=== PATIENT | male | born 1955 ===

== ENCOUNTER 2018-11-21 13:11 | Emergency (ER) | payer OTHER ==
[~2018-11-21] VITALS: Ht 172.7 cm; Wt 72.6 kg
[~2018-11-21 13:11] MED LIST: ASPI325 PO; ATEN100 PO; IBUP600 PO; LISI20 PO
[2018-11-21 13:47] LABS: BASOPHILS PERCENT AUTO 1 % (0-2); EOSINOPHILS ABSOLUTE AUTO 0.21 K/mm3 (0.00-0.68); EOSINOPHILS PERCENT AUTO 3 % (0-6); Hematocrit 39.5 % (37.0-53.0); Hemoglobin 14.3 g/dL (13.5-17.5); IMMATURE GRAN ABSOLUTE AUTO 0.04 K/mm3 (0.00-0.10); IMMATURE GRAN PERCENT AUTO 1 % (0-1); LYMPHOCYTES PERCENT AUTO 23 % (21-46); MONOCYTES ABSOLUTE AUTO 0.74 K/mm3 (0.16-1.47); MONOCYTES PERCENT AUTO 9 % (4-13); Mean Corpuscular HGB 35.1 pg (26.0-34.0); Mean Corpuscular HGB Conc 36.2 g/dL (31.5-36.5); Mean Corpuscular Volume 97 fL (80-100); Mean Platelet Volume 8.4 fL (9.1-12.4); NEUTROPHILS ABSOLUTE AUTO 5.39 K/mm3 (1.96-9.15); NEUTROPHILS PERCENT AUTO 64 % (41-73); Platelet Count 235 K/mm3 (150-400); RDW Coefficient Variation 10.7 % (11.7-14.2); RDW Standard Deviation 38.5 fL (35.1-46.3); Red Blood Cell Count 4.07 M/mm3 (4.30-5.90); White Blood Cell Count 8.38 K/mm3 (4.00-11.30)
[2018-11-21] MEDS ORDERED: AMLO5 PO (13:53)
[2018-11-21 14:16] LABS: Alanine Aminotransfer (ALT/SGP 24 U/L (12-78); Albumin, Blood 3.9 g/dL (3.4-5.0); Albumin/Globulin Ratio 1.1 (0.8-1.8); Alk Phos 75 U/L (50-136); Anion Gap 6 mmol/L (6-16); Aspartate Aminotrans (AST/SGOT 20 U/L (12-37); Bilirubin, Total 0.9 mg/dL (0.1-1.0); Blood Urea Nitrogen 5 mg/dL (8-24); Bun/Creatinine Ratio 7.7 (12.0-20.0); CO2, Blood 28 mmol/L (21-32); Calcium, Blood 8.5 mg/dL (8.5-10.1); Chloride, Blood 94 mmol/L (98-108); Creatinine, Blood 0.65 mg/dL (0.60-1.20); Globulin, Blood 3.5 g/dL (2.2-4.0); Glomerular Filtration Rate >60 (60-); Glucose, Blood 97 mg/dL (70-99); Potassium, Blood 4.5 mmol/L (3.5-5.5); Sodium, Blood 128 mmol/L (136-145); Total Protein, Blood 7.4 g/dL (6.4-8.2); Troponin I <0.015 ng/mL (0.000-0.040)
[2018-11-21] MEDS ORDERED: IBUP400 PO (14:55)
== END 2018-11-21 15:27 | disposition home or self-care (01) ==
LOC: ER 13:11
PROVIDERS: Emergency Medicine
DX: J44.9 Chronic obstructive pulmonary disease, unspecified (principal); R07.9 Chest pain, unspecified; F17.200 Nicotine dependence, unspecified, uncomplicated; I10 Essential (primary) hypertension; Z79.899 Other long term (current) drug therapy
CPT/HCPCS: 36415; 71046; 80053; 83880; 84484; 85025; 93005; 93010; 99285-25

== ENCOUNTER → 2019-09-19 | Outpatient (CLI) | payer OTHER ==
[~2019-09-19] MED LIST changes: +AMLO5 PO; +IBUP400 PO
[2019-09-19 15:13] LABS: Stool Occult Bld Immuno 1 Negative (NEGATIVE)
== END ==
LOC: LAB SHORT 08:30 → LAB 08:30
PROVIDERS: Nurse Practitioner Family
DX: Z12.11 Encounter for screening for malignant neoplasm of colon (principal)
CPT/HCPCS: G0328

== ENCOUNTER → 2022-05-19 | Outpatient (CLI) | payer MEDICARE, OTHER ==
[2022-05-19 15:34] LABS: BASOPHILS ABSOLUTE AUTO 0.13 K/mm3 (0.00-0.23); BASOPHILS PERCENT AUTO 2 % (0-2); EOSINOPHILS ABSOLUTE AUTO 0.13 K/mm3 (0.00-0.68); EOSINOPHILS PERCENT AUTO 2 % (0-6); Hematocrit 38.2 % (37.0-53.0); Hemoglobin 13.9 g/dL (13.5-17.5); IMMATURE GRAN ABSOLUTE AUTO 0.04 K/mm3 (0.00-0.10); IMMATURE GRAN PERCENT AUTO 1 % (0-1); LYMPHOCYTES ABSOLUTE AUTO 1.44 K/mm3 (0.84-5.20); LYMPHOCYTES PERCENT AUTO 20 % (21-46); MONOCYTES ABSOLUTE AUTO 0.64 K/mm3 (0.16-1.47); MONOCYTES PERCENT AUTO 9 % (4-13); Mean Corpuscular HGB 36.5 pg (26.0-34.0); Mean Corpuscular HGB Conc 36.4 g/dL (31.5-36.5); Mean Corpuscular Volume 100 fL (80-100); Mean Platelet Volume 8.7 fL (9.1-12.4); NEUTROPHILS ABSOLUTE AUTO 4.92 K/mm3 (1.96-9.15); NEUTROPHILS PERCENT AUTO 67 % (41-73); Platelet Count 208 K/mm3 (150-400); RDW Standard Deviation 44.2 fL (35.1-46.3); Red Blood Cell Count 3.81 M/mm3 (4.30-5.90)
[2022-05-19 15:47] LABS: Albumin, Blood 3.7 g/dL (3.4-5.0); Bilirubin, Total 0.4 mg/dL (0.1-1.0); Bun/Creatinine Ratio 5.8 (12.0-20.0); Creatinine, Blood 0.86 mg/dL (0.60-1.20); Globulin, Blood 3.7 g/dL (2.2-4.0); Potassium, Blood 4.4 mmol/L (3.5-5.5); Total Protein, Blood 7.4 g/dL (6.4-8.2)
== END | disposition home or self-care (01) ==
LOC: LAB SHORT 15:28 → LAB 15:28
PROVIDERS: Physician Assistant
DX: R10.9 Unspecified abdominal pain (principal)
CPT/HCPCS: 80053; 85025

== ENCOUNTER 2025-06-26 18:25 | Inpatient (IN) | payer OTHER ==
[~2025-06-26] VITALS: Ht 175.3 cm; Wt 70.1 kg
[~2025-06-26 18:25] MED LIST changes: +AMLO10 PO; -AMLO5 PO; +PANT20 PO; +Percocet 5-3251 EACH PO
[2025-06-26] MEDS ORDERED: NS 2,000 ML IV ONE (18:35)
[2025-06-26] MEDS ORDERED: NS 1,000 ML IV SCH ×3 (18:40→20:50)
[2025-06-26 18:44] LABS: Calcium, Ionized (POC) 1.17 mmol/L (1.10-1.46); Chloride (POC) 102 mmol/L (98-108); Creatinine (POC) 1.8 mg/dL (0.8-1.3); Glucose (ISTAT POC) 153 mg/dL (70-99); Hematocrit (POC) 35.0 % (41.0-53.0); Hemoglobin (POC) 11.9 g/dL (13.5-17.5); Potassium (POC) 4.8 mmol/L (3.5-5.5); Sodium (POC) 134 mmol/L (135-148); Total CO2 (POC) 17 mmol/L (21-32)
[2025-06-26 19:01] LABS: BASOPHILS ABSOLUTE AUTO 0.05 K/mm3 (0.00-0.23); BASOPHILS PERCENT AUTO 1 % (0-2); EOSINOPHILS ABSOLUTE AUTO 0.01 K/mm3 (0.00-0.68); EOSINOPHILS PERCENT AUTO 0 % (0-6); Hematocrit 32.5 % (37.0-53.0); Hemoglobin 11.4 g/dL (13.5-17.5); IMMATURE GRAN ABSOLUTE AUTO 0.10 K/mm3 (0.00-0.10); IMMATURE GRAN PERCENT AUTO 1 % (0-1); LYMPHOCYTES ABSOLUTE AUTO 1.20 K/mm3 (0.84-5.20); LYMPHOCYTES PERCENT AUTO 11 % (21-46); MONOCYTES ABSOLUTE AUTO 0.76 K/mm3 (0.16-1.47); MONOCYTES PERCENT AUTO 7 % (4-13); Mean Corpuscular HGB Conc 35.1 g/dL (31.5-36.5); Mean Corpuscular Volume 94 fL (80-100); NEUTROPHILS ABSOLUTE AUTO 8.44 K/mm3 (1.96-9.15); NEUTROPHILS PERCENT AUTO 80 % (41-73); NRBC ABSOLUTE 0.00 K/mm3 (0.00-0.02); NRBC Auto 0.0 /100 WBC (0.0-0.2); Platelet Count 383 K/mm3 (150-400); RDW Coefficient Variation 13.1 % (11.7-14.2); RDW Standard Deviation 44.9 fL (35.1-46.3)
[2025-06-26 19:12] LABS: Alanine Aminotransfer (ALT/SGP 25.0 U/L (12-78); Albumin, Blood 2.2 g/dL (3.4-5.0); Albumin/Globulin Ratio 0.5 (0.8-1.8); Anion Gap 10.0 mmol/L (3-11); Aspartate Aminotrans (AST/SGOT 25.0 U/L (12-37); Bilirubin, Total 0.4 mg/dL (0.1-1.0); Blood Urea Nitrogen 38.0 mg/dL (8-24); CO2, Blood 18.0 mmol/L (21-32); Calcium, Blood 8.6 mg/dL (8.5-10.1); Chloride, Blood 105.0 mmol/L (98-108); Creatinine, Blood 1.51 mg/dL (0.60-1.20); Globulin, Blood 4.5 g/dL (2.2-4.0); Glucose, Blood 155.0 mg/dL (70-99); Magnesium, Blood 1.5 mg/dL (1.6-2.4); Phosphorus, Blood 2.2 mg/dL (2.5-4.9); Potassium, Blood 4.6 mmol/L (3.5-5.5); Sodium, Blood 128.0 mmol/L (136-145); Total Protein, Blood 6.7 g/dL (6.4-8.2)
[2025-06-26] MEDS ORDERED: Piperacillin/Tazobactam Sod 3.375 GM in NS 100 ML IV ONE (19:15)
[2025-06-26 19:34] LABS: Influenza A, PCR NEGATIVE (NEGATIVE); Influenza B, PCR NEGATIVE (NEGATIVE); Resp Syncytial Virus, PCR NEGATIVE (NEGATIVE); SARS-Cov-2 (COVID-19) PCR, MMC NEGATIVE (NEGATIVE)
[2025-06-26] MEDS ORDERED: FentaNYL Citrate 50 MCG/ML 2 ML Injection IV ONE (19:55)
[2025-06-26] MEDS ORDERED: Ondansetron HCl 2 MG / ML 2ML Vial IV PRN (20:50)
[2025-06-26] MEDS ORDERED: FentaNYL Citrate 50 MCG/ML 2 ML Injection IV PRN (20:55)
[2025-06-26] MEDS ORDERED: HydrALAZINE HCl 20 MG / ML 1ML Vial IV PRN ×2 (20:55→23:05)
[2025-06-26] MEDS ORDERED: Magnesium Sulf 2 GM/Water 50ML 50 ML IV STA (20:57)
[2025-06-26] MEDS ORDERED: Sodium Phosphate 20 MM in NS 500 ML IV STA (21:00)
[2025-06-26] MEDS ORDERED: FentaNYL Citrate 50 MCG/ML 2 ML Injection ONE (21:39)
[2025-06-26] MEDS ORDERED: Phenylephrine HCl 100 MCG/ML-NS 10MLSYR (1MG/10ML) ONE (21:40)
[2025-06-26] MEDS ORDERED: Rocuronium Bromide 10 MG/ML 5ML Injection IV ONE (21:40)
[2025-06-26] MEDS ORDERED: Dexamethasone Sod Phos 10 MG/ML 1ML VIAL ONE (21:48)
[2025-06-26] MEDS ORDERED: Bupivacaine 0.5% HCl 5 MG/ML 30MLVIAL ONE (22:35)
[2025-06-26] MEDS ORDERED: Bupivacaine HCl 0.25% 30 ML Injection ONE (22:35)
[2025-06-26] MEDS ORDERED: Sugammadex Sodium 200 MG/2ML SDV (100 MG/ML) ONE (22:39)
[2025-06-26] MEDS ORDERED: Ondansetron HCl 2 MG / ML 2ML Vial ONE (22:39)
[2025-06-26 23:15] VITALS: BP 95/60
--- NOTE | 2025-06-26 23:15 | NUR ---
ASSESSMENT/ ASSUMED CARE/ S/P OR PT ARRIVED TO ICU VIA BED FROM OR. SLEEPING BUT OPENS EYES TO VERBAL STIMULI. DENIES PAIN AT THIS TIME. LUNGS CLEAR BUT DECREASED IN THE BASES. PT ON 6 LITERS O2 VIA NRB. SPO2 100%. CHANGED O2 TO 2 LITERS VIA NC. NONPRODUCTIVE COUGH NOTED. INSTRUCTED PT TO HOLD PILLOW TO ABD WHEN COUGHING. HEART RATE REGULAR IN THE 70'S. BP HYPOTENSIVE BUT MAP GREATER THAN 65. NO EDEMA. BT ABSENT. ABD FIRM. NG TO LEFT NARE ON LIS WITH BROWN LIQUID IN TUBING. ABD WITH MIDLINE GINETTE DRSG INTACT. IV 18G TO LEFT AC, SITE CLEAR. NA PHOS STARTED. FLUSHED WITHOUT DIFFICULTY. IV 18G TO RIGHT AC, SITE CLEAR. NS AT 125 ML/HR STARTED. FLUSHED WITHOUT DIFFICULTY. DOAN CATH PATENT DRAINING YELLOW URINE. SCD'S ON. PT GAVE VERBAL CONSENT TO CALL AND UPDATE SON. UNABLE TO REACH SON, PHONE STATES DISCONNECTED. GLASS EYE TO RIGHT NOTED. PT SLEEPY.
[2025-06-26 23:30] VITALS: BP 94/52
[2025-06-26 23:45] VITALS: BP 94/65
[2025-06-27] VITALS (40 sets, daily range): BP systolic 87–119; BP diastolic 49–98
--- NOTE | 2025-06-27 00:36 | NUR ---
PAIN PT AWAKE C/O ABD PAIN "BURNING" 05/15 MED WITH FENTANYL 50 MCQ
[2025-06-27] MEDS ORDERED: Piperacillin/Tazobactam Sod 3.375 GM in NS 100 ML IV SCH (02:00)
[2025-06-27] MEDS ORDERED: Metoclopramide HCl 5MG / ML 2ML Vial IV PRN (03:30)
[2025-06-27 03:57] LABS: BASOPHILS ABSOLUTE AUTO 0.03 K/mm3 (0.00-0.23); BASOPHILS PERCENT AUTO 0 % (0-2); EOSINOPHILS ABSOLUTE AUTO 0.00 K/mm3 (0.00-0.68); EOSINOPHILS PERCENT AUTO 0 % (0-6); Hematocrit 31.3 % (37.0-53.0); Hemoglobin 10.7 g/dL (13.5-17.5); IMMATURE GRAN ABSOLUTE AUTO 0.11 K/mm3 (0.00-0.10); IMMATURE GRAN PERCENT AUTO 1 % (0-1); LYMPHOCYTES ABSOLUTE AUTO 0.68 K/mm3 (0.84-5.20); LYMPHOCYTES PERCENT AUTO 6 % (21-46); MONOCYTES ABSOLUTE AUTO 0.19 K/mm3 (0.16-1.47); MONOCYTES PERCENT AUTO 2 % (4-13); Mean Corpuscular HGB Conc 34.2 g/dL (31.5-36.5); Mean Corpuscular Volume 96 fL (80-100); NEUTROPHILS ABSOLUTE AUTO 10.50 K/mm3 (1.96-9.15); NEUTROPHILS PERCENT AUTO 91 % (41-73); NRBC ABSOLUTE 0.00 K/mm3 (0.00-0.02); NRBC Auto 0.0 /100 WBC (0.0-0.2); Platelet Count 295 K/mm3 (150-400); RDW Coefficient Variation 13.2 % (11.7-14.2); RDW Standard Deviation 46.8 fL (35.1-46.3)
[2025-06-27 04:17] LABS: Magnesium, Blood 2.0 mg/dL (1.6-2.4)
[2025-06-27 04:23] LABS: Anion Gap 12.0 mmol/L (3-11); Blood Urea Nitrogen 28.0 mg/dL (8-24); CO2, Blood 19.0 mmol/L (21-32); Calcium, Blood 7.4 mg/dL (8.5-10.1); Chloride, Blood 111.0 mmol/L (98-108); Creatinine, Blood 1.07 mg/dL (0.60-1.20); Glucose, Blood 131.0 mg/dL (70-99); Phosphorus, Blood 3.9 mg/dL (2.5-4.9); Potassium, Blood 4.3 mmol/L (3.5-5.5); Sodium, Blood 138.0 mmol/L (136-145)
--- NOTE | 2025-06-27 06:08 | NUR ---
SHIFT SUMMARY PT ADMITTED TO ICU DURING THE NIGHT FROM OR. RESTING QUIETLY AT THIS TIME. MED WITH FENTANYL 50 MCQ PRN FOR ABD PAIN WITH "BURNING", GOOD RESULTS. PT C/O NAUSEA ONCE DURING THE NIGHT. MED WITH ZOFRAN WITH GOOD RESULTS. LUNGS CLEAR BUT DECREASED IN THE BASES. PT ON 2 LITERS O2 VIA NC SPO2 99-100%. NONPRODUCTIVE COUGH NOTED. HEART RATE REGULAR IN THE 70'S. BP STABLE WITH MAP GREATER THAN 65. BT ABSENT. ABD FIRM. MIDLINE ABD GINETTE DRSG INTACT. NO BLEEDING OR DRAINAGE NOTED. NS INFUSING AT 125 ML/HR. DOAN CATH PATENT DRAINING CLEAR YELLOW URINE. TURNED Q2HR. NG TO LIS WITH GREEN BILE DRAINING. REPORT TO ON COMING NURSE.
[2025-06-27] MEDS ORDERED: Pantoprazole Sodium 40 MG Injection IV SCH (09:00)
--- NOTE | 2025-06-27 12:25 | NUR ---
CALLED DR. MARTINEZ ABOUT PLACING PT ON VTE PROPHYLAXIS, HE IS OK WITH THAT. CALLED DR. JAVIER WHO WILL ORDER LOVENOX.
--- NOTE | 2025-06-27 13:00 | NUR ---
PT A/O X4. HAS SOME PAIN AT INCISION SITE THAT FENTANYL IS EFFECTIVE FOR. HAS GINETTE TO MIDLINE ABD WITH GOOD SUCTION, SM AMT OF DRAINAGE WITHIN THE DRESSING THAT IS NOT NEW. NG TO LIS WITH GREEN BILE. PT TOLERATING A FEW ICE CHIPS. PT MADE SURGICAL STATUS. TRANSFERED TO ROOM 224 NO SIGN OF DISTRESS.
--- NOTE | 2025-06-27 13:27 | NUR ---
ASSUMED CARE OF PT @1310 AXO4. NGT TO LIS GREEN OUTPUT. DOAN CATH PATENT - MED YELLOW URINE. IV FLUIDS INFUSING. PT PULLED OVER INTO NEW BED. ROLLED WELL. SCD'S CONTINUE. BED ALARM ON. PT TOELRATING ICE CHIPS WELL.
--- NOTE | 2025-06-27 17:13 | NUR ---
SUMMARY POST ASSUMPTION OF CARE. NO ACUTE CHANGES. DOAN REMAINS PATENT/DRAINING CLEAR URINE. NGT REMAINS WITH GREEN OUTPUT - PATENT. PT AXO4, RESTING OFF AND ON. NOT REQUIRING PAIN MEDS AT THIS TIME. TOLERATING ICE CHIPS CURRENTLY - ENCOURAGING PT TO GO SLOW WITH THESE. PT BEING REPOSITIONED BY STAFF. BED ALARM ON. CALL LIGHT WITHIN REACH.
[2025-06-28 03:12] VITALS: BP 115/68
--- NOTE | 2025-06-28 04:39 | NUR ---
SHIFT SUMMARY NOC PT A/O X 4. PLEASANT AND COOPERATIVE WITH CARE. VSS. NO ACUTE CHANGES TO REPORT. NG TUBE IN L NARE DRAINING LARGE AMOUNTS OF GREEN BILE. DOAN IN PLACE DRAINING CLEAR URINE TO GRAVITY. MIDLINE GINETTE HAS SMALL SEROSANGUINOUS FLUID ON DRESSING. PT HAS NS INFUSING @ 125 ML/HR. PAIN BEING MANAGED PER EMAR WELL IV ABX. PT NPO BUT IS TOLERATING ICE CHIPS W/O ISSUE. PT CURRENTLY RESTING WITH BED IN LOWEST POSITION, AND CALL LIGHT WITHIN REACH.
[2025-06-28 05:26] LABS: BASOPHILS ABSOLUTE AUTO 0.03 K/mm3 (0.00-0.23); BASOPHILS PERCENT AUTO 0 % (0-2); EOSINOPHILS ABSOLUTE AUTO 0.01 K/mm3 (0.00-0.68); EOSINOPHILS PERCENT AUTO 0 % (0-6); Hematocrit 31.3 % (37.0-53.0); Hemoglobin 10.4 g/dL (13.5-17.5); IMMATURE GRAN ABSOLUTE AUTO 0.32 K/mm3 (0.00-0.10); IMMATURE GRAN PERCENT AUTO 3 % (0-1); LYMPHOCYTES ABSOLUTE AUTO 1.64 K/mm3 (0.84-5.20); LYMPHOCYTES PERCENT AUTO 14 % (21-46); MONOCYTES ABSOLUTE AUTO 1.06 K/mm3 (0.16-1.47); MONOCYTES PERCENT AUTO 9 % (4-13); Mean Corpuscular HGB Conc 33.2 g/dL (31.5-36.5); Mean Corpuscular Volume 99 fL (80-100); NEUTROPHILS ABSOLUTE AUTO 9.13 K/mm3 (1.96-9.15); NEUTROPHILS PERCENT AUTO 75 % (41-73); NRBC ABSOLUTE 0.00 K/mm3 (0.00-0.02); NRBC Auto 0.0 /100 WBC (0.0-0.2); Platelet Count 307 K/mm3 (150-400); RDW Coefficient Variation 13.3 % (11.7-14.2); RDW Standard Deviation 49.2 fL (35.1-46.3)
[2025-06-28 05:54] LABS: Anion Gap 10.0 mmol/L (3-11); Blood Urea Nitrogen 14.0 mg/dL (8-24); CO2, Blood 20.0 mmol/L (21-32); Calcium, Blood 7.7 mg/dL (8.5-10.1); Chloride, Blood 115.0 mmol/L (98-108); Creatinine, Blood 0.81 mg/dL (0.60-1.20); Glucose, Blood 106.0 mg/dL (70-99); Potassium, Blood 4.2 mmol/L (3.5-5.5); Sodium, Blood 141.0 mmol/L (136-145)
[2025-06-28 07:27] VITALS: BP 120/65
[2025-06-28] MEDS ORDERED: Enoxaparin 40 MG/0.4 ML SYR SC SCH (09:00)
--- NOTE | 2025-06-28 11:28 | NUR ---
NG TUBE REMOVED BY RN AT 11:20. TOLERATED WELL. ICE WATER GIVEN TO THE PATIENT
[2025-06-28 14:04] VITALS: BP 103/70
--- NOTE | 2025-06-28 17:58 | NUR ---
PATIENT IS ALERT AND ORIENTED AND COOPERATIVE WITH CARE. ON RA. R. GLASS EYE. PASSING GAS, NO BM TODAY. ABSENT BOWEL SOUNDS. NG TUBE REMOVED TODAY. TOLERTING CLEAR LIQUIDS FOR LUNCH AND DINNER. NO N/V. DOAN IN PLACE AND DRAINING. NS AT 125/HR. MEDICATED FOR ABD PAIN PER EMAR. MIDLINE GINETTE DRESSING IS SUCTIONING IT SHOULD, MINIMAL SPOTTING NOTED ON DRESSING WITHOUT CHANGE THIS SHIFT. 1PA FWW AND GAITBELT. PATIENT WORKED WITH PT THIS MORNING. HE WAS ABLE TO SIT ON THE EOB, STAND AT THE BEDSIDE AND SIDE STEP TO THE HEAD OF THE BED. PATIENT REFUSED TO AMBULATE WITH NURSING STAFF THIS SHIFT, STATING THAT HE WAS TOO HUNGRY AND WITHOUT ENERGY TO WALK. WILL CONTINUE TO MONITOR
[2025-06-28 19:07] VITALS: BP 114/72
[2025-06-29 03:39] VITALS: BP 102/62
--- NOTE | 2025-06-29 04:03 | NUR ---
SHIFT SUMMARY NOC PT A/O X 4. PLEASANT AND COOPERATIVE WITH CARE. VSS. PT IS TOLERATING CLEAR LIQUID DIET W/O ISSUE, WITH ONLY C/O OF SCRATCHY THROAT FROM NG TUBE THAT WAS REMOVED YESTERDAY. PT ABLE TO AMBULATE TO BATHROOM WITH 1PA FWW/GB AND HAD MEDIUM LOOSE/SOFT BM THAT PT REPORTS IS FIRST SINCE THE DAY BEFORE ADMIT. PT HAS DOAN IN PLACE DRAINING CLEAR YELLOW URINE TO GRAVITY. GINETTE DRESSING IN PLACE MIDLINE PT IS POST OP DAY 3 TODAY. PAIN IS BEING MANAGED PER EMAR. PT CURRENTLY RESTING WITH BED IN LOWEST POSITION, AND CALL LIGHT WITHIN REACH.
[2025-06-29 05:19] LABS: BASOPHILS ABSOLUTE AUTO 0.04 K/mm3 (0.00-0.23); BASOPHILS PERCENT AUTO 0 % (0-2); EOSINOPHILS ABSOLUTE AUTO 0.11 K/mm3 (0.00-0.68); EOSINOPHILS PERCENT AUTO 1 % (0-6); Hematocrit 31.7 % (37.0-53.0); Hemoglobin 10.8 g/dL (13.5-17.5); IMMATURE GRAN ABSOLUTE AUTO 0.34 K/mm3 (0.00-0.10); IMMATURE GRAN PERCENT AUTO 3 % (0-1); LYMPHOCYTES ABSOLUTE AUTO 2.24 K/mm3 (0.84-5.20); LYMPHOCYTES PERCENT AUTO 21 % (21-46); MONOCYTES ABSOLUTE AUTO 0.96 K/mm3 (0.16-1.47); MONOCYTES PERCENT AUTO 9 % (4-13); Mean Corpuscular HGB Conc 34.1 g/dL (31.5-36.5); Mean Corpuscular Volume 96 fL (80-100); NEUTROPHILS ABSOLUTE AUTO 7.04 K/mm3 (1.96-9.15); NEUTROPHILS PERCENT AUTO 66 % (41-73); NRBC ABSOLUTE 0.00 K/mm3 (0.00-0.02); NRBC Auto 0.0 /100 WBC (0.0-0.2); RDW Coefficient Variation 13.4 % (11.7-14.2); RDW Standard Deviation 47.5 fL (35.1-46.3)
[2025-06-29 05:46] LABS: Anion Gap 11.0 mmol/L (3-11); Blood Urea Nitrogen 9.0 mg/dL (8-24); CO2, Blood 21.0 mmol/L (21-32); Calcium, Blood 7.5 mg/dL (8.5-10.1); Chloride, Blood 116.0 mmol/L (98-108); Creatinine, Blood 0.67 mg/dL (0.60-1.20); Glucose, Blood 86.0 mg/dL (70-99); Potassium, Blood 3.5 mmol/L (3.5-5.5); Sodium, Blood 144.0 mmol/L (136-145)
[2025-06-29 06:06] LABS: Platelet Count 306 K/mm3 (150-400)
[2025-06-29 07:23] VITALS: BP 111/60
[2025-06-29 14:47] VITALS: BP 129/69
--- NOTE | 2025-06-29 17:49 | NUR ---
SHIFT SUMMARY PATIENT IS POD 2 EX-LAP WITH GINETTE DRESSING. SHADOWING NOTED TO CENTER OF GINETTE. PATIENT IS PASSING FLATUS AND SEVERAL SMALL BMS TODAY. TOLERATING FULL LIQ DIET. MEDICATED FOR PAIN PRN. ABLE TO AMBULATE IN ROOM IND. VSS. CALLS APPROPRIATELY.
[2025-06-29 19:14] VITALS: BP 117/66
[2025-06-30 04:02] VITALS: BP 120/65
--- NOTE | 2025-06-30 04:10 | NUR ---
SHIFT SUMMARY A/OX4, IND FOR TRANSFERS. MIDLINE GINETTE TO ABD. C/O PAIN MEDICATED PER EMAR PRN. TOLERATING CLEAR LIQUID DIET. NO ACUTE CHANGES.
[2025-06-30 04:37] LABS: BASOPHILS ABSOLUTE AUTO 0.05 K/mm3 (0.00-0.23); BASOPHILS PERCENT AUTO 1 % (0-2); EOSINOPHILS ABSOLUTE AUTO 0.18 K/mm3 (0.00-0.68); EOSINOPHILS PERCENT AUTO 2 % (0-6); Hematocrit 29.8 % (37.0-53.0); Hemoglobin 10.1 g/dL (13.5-17.5); IMMATURE GRAN ABSOLUTE AUTO 0.23 K/mm3 (0.00-0.10); IMMATURE GRAN PERCENT AUTO 3 % (0-1); LYMPHOCYTES ABSOLUTE AUTO 1.65 K/mm3 (0.84-5.20); LYMPHOCYTES PERCENT AUTO 22 % (21-46); MONOCYTES ABSOLUTE AUTO 0.59 K/mm3 (0.16-1.47); MONOCYTES PERCENT AUTO 8 % (4-13); Mean Corpuscular HGB Conc 33.9 g/dL (31.5-36.5); Mean Corpuscular Volume 95 fL (80-100); NEUTROPHILS ABSOLUTE AUTO 4.81 K/mm3 (1.96-9.15); NEUTROPHILS PERCENT AUTO 64 % (41-73); NRBC ABSOLUTE 0.00 K/mm3 (0.00-0.02); NRBC Auto 0.0 /100 WBC (0.0-0.2); Platelet Count 295 K/mm3 (150-400); RDW Coefficient Variation 13.2 % (11.7-14.2); RDW Standard Deviation 45.6 fL (35.1-46.3)
[2025-06-30 04:58] LABS: Anion Gap 8.0 mmol/L (3-11); Blood Urea Nitrogen 5.0 mg/dL (8-24); CO2, Blood 24.0 mmol/L (21-32); Calcium, Blood 7.1 mg/dL (8.5-10.1); Chloride, Blood 111.0 mmol/L (98-108); Creatinine, Blood 0.63 mg/dL (0.60-1.20); Glucose, Blood 89.0 mg/dL (70-99); Potassium, Blood 3.0 mmol/L (3.5-5.5); Sodium, Blood 140.0 mmol/L (136-145)
[2025-06-30 07:18] VITALS: BP 115/67
[2025-06-30 14:31] VITALS: BP 120/72
--- NOTE | 2025-06-30 18:41 | NUR ---
SHIFT SUMMARY; ASSUMED CARE AT 0700. A/A/OX4. ENCOURAGED OUT OF BED TODAY AND DECLINED. PICCO DRAIN IN PLACE C/D/I. VSS, NO ACUTE CHANGES, EATING FULL LIQUID DIET AND TOLERATING WELL. WILL REPORT TO ONCOMING NOC SHIFT RN.
[2025-06-30 20:04] VITALS: BP 124/69
[2025-07-01 03:14] VITALS: BP 119/76
--- NOTE | 2025-07-01 04:59 | NUR ---
SHIFT SUMMARY POD 4 EX LAP. NO ACUTE CHANGES OVERNIGHT. VSS. TOLERATING FULL LIQ DIET, DENIES N/V. VOIDING. REPORTS PASSING FLATUS. MIDLINE GINETTE C/D/I c MIN SHADOWING ON DRESSING. IND AMB, ENC AMB. PT RESISANT TO AMB, REQUIRES SIGNIFICANT MOTIVATION. PT REPORTS PAIN TOLERABLE, MEDICATED PER EMAR. CALL LIGHT IN REACH, BED IN LOWEST POSITION, WILL REPORT TO DAY RN.
[2025-07-01 05:57] LABS: BASOPHILS ABSOLUTE AUTO 0.06 K/mm3 (0.00-0.23); BASOPHILS PERCENT AUTO 1 % (0-2); EOSINOPHILS ABSOLUTE AUTO 0.11 K/mm3 (0.00-0.68); EOSINOPHILS PERCENT AUTO 2 % (0-6); Hematocrit 28.1 % (37.0-53.0); Hemoglobin 9.7 g/dL (13.5-17.5); IMMATURE GRAN ABSOLUTE AUTO 0.16 K/mm3 (0.00-0.10); IMMATURE GRAN PERCENT AUTO 2 % (0-1); LYMPHOCYTES ABSOLUTE AUTO 1.71 K/mm3 (0.84-5.20); LYMPHOCYTES PERCENT AUTO 25 % (21-46); MONOCYTES ABSOLUTE AUTO 0.40 K/mm3 (0.16-1.47); MONOCYTES PERCENT AUTO 6 % (4-13); Mean Corpuscular HGB Conc 34.5 g/dL (31.5-36.5); Mean Corpuscular Volume 93 fL (80-100); NEUTROPHILS ABSOLUTE AUTO 4.44 K/mm3 (1.96-9.15); NEUTROPHILS PERCENT AUTO 65 % (41-73); NRBC ABSOLUTE 0.00 K/mm3 (0.00-0.02); NRBC Auto 0.0 /100 WBC (0.0-0.2); Platelet Count 244 K/mm3 (150-400); RDW Coefficient Variation 13.1 % (11.7-14.2); RDW Standard Deviation 44.5 fL (35.1-46.3)
[2025-07-01 06:38] LABS: Anion Gap 7.0 mmol/L (3-11); Blood Urea Nitrogen 3.0 mg/dL (8-24); CO2, Blood 26.0 mmol/L (21-32); Calcium, Blood 7.3 mg/dL (8.5-10.1); Chloride, Blood 109.0 mmol/L (98-108); Creatinine, Blood 0.69 mg/dL (0.60-1.20); Glucose, Blood 98.0 mg/dL (70-99); Potassium, Blood 3.1 mmol/L (3.5-5.5); Sodium, Blood 139.0 mmol/L (136-145)
[2025-07-01 07:21] VITALS: BP 118/71
[2025-07-01 15:01] VITALS: BP 138/79
--- NOTE | 2025-07-01 15:49 | NUR ---
SUMMARY: NO ACUTE CHANGE TODAY. VSS, A/O. SURGICAL SITE WNL AND ANTIBIOTIC INFUSED. PT AGREED TO SHOWER,BUT REFUSED WALKING IN SINGH. MINIMAL PAIN AND HAD FEW BITES OF REG DIET. NO N/V AND DRINKING FLUIDS WELL. NO ACUTE CONCERNS
[2025-07-01 19:29] VITALS: BP 130/62
--- NOTE | 2025-07-02 03:18 | NUR ---
SHIFT SUMMARY NO ACUTE CHANGES TONIGHT. GINETTE TO MIDLINE COMPRESSED AND INTACT. ABX INFUSED PER ORDERS. PAIN MANAGED X 1 PER EMAR. GUILLERMO REGULAR DIET, DENIES N/V. IND IN ROOM. IS A/OX4 WITH VSS. PT CURRENTLY WATCHING TV IN ROOM, DENIES NEEDS AND HAS CALL LIGHT IN REACH. WILL GIVE REPORT TO ONCOMING RN.
[2025-07-02 05:02] LABS: BASOPHILS ABSOLUTE AUTO 0.06 K/mm3 (0.00-0.23); BASOPHILS PERCENT AUTO 1 % (0-2); EOSINOPHILS ABSOLUTE AUTO 0.17 K/mm3 (0.00-0.68); EOSINOPHILS PERCENT AUTO 2 % (0-6); Hematocrit 27.4 % (37.0-53.0); Hemoglobin 9.6 g/dL (13.5-17.5); IMMATURE GRAN ABSOLUTE AUTO 0.16 K/mm3 (0.00-0.10); IMMATURE GRAN PERCENT AUTO 2 % (0-1); LYMPHOCYTES ABSOLUTE AUTO 1.81 K/mm3 (0.84-5.20); LYMPHOCYTES PERCENT AUTO 21 % (21-46); MONOCYTES ABSOLUTE AUTO 0.53 K/mm3 (0.16-1.47); MONOCYTES PERCENT AUTO 6 % (4-13); Mean Corpuscular HGB Conc 35.0 g/dL (31.5-36.5); Mean Corpuscular Volume 93 fL (80-100); NEUTROPHILS ABSOLUTE AUTO 5.99 K/mm3 (1.96-9.15); NEUTROPHILS PERCENT AUTO 69 % (41-73); NRBC ABSOLUTE 0.00 K/mm3 (0.00-0.02); NRBC Auto 0.0 /100 WBC (0.0-0.2); Platelet Count 224 K/mm3 (150-400); RDW Coefficient Variation 13.0 % (11.7-14.2); RDW Standard Deviation 43.6 fL (35.1-46.3)
[2025-07-02 05:16] VITALS: BP 128/69
[2025-07-02 05:23] LABS: Alanine Aminotransfer (ALT/SGP 24.0 U/L (12-78); Albumin, Blood 1.8 g/dL (3.4-5.0); Albumin/Globulin Ratio 0.6 (0.8-1.8); Anion Gap 10.0 mmol/L (3-11); Aspartate Aminotrans (AST/SGOT 25.0 U/L (12-37); Bilirubin, Total 0.4 mg/dL (0.1-1.0); Blood Urea Nitrogen 3.0 mg/dL (8-24); CO2, Blood 24.0 mmol/L (21-32); Calcium, Blood 6.9 mg/dL (8.5-10.1); Chloride, Blood 107.0 mmol/L (98-108); Creatinine, Blood 0.7 mg/dL (0.60-1.20); Globulin, Blood 3.2 g/dL (2.2-4.0); Glucose, Blood 82.0 mg/dL (70-99); Potassium, Blood 3.1 mmol/L (3.5-5.5); Sodium, Blood 138.0 mmol/L (136-145); Total Protein, Blood 5.0 g/dL (6.4-8.2)
[2025-07-02 07:46] VITALS: BP 118/71
--- NOTE | 2025-07-02 14:05 | NUR ---
Pt. is awake in bed whe he welcomes my visit. Pt. is pleasant. Facilitated a life review and listened with empathy and a calming presence. Pt. displayed evidence of being encouraged. Prayed with Pt. Pt. verbalized gratitude for the spiritual care visit.
[2025-07-02 14:10] VITALS: BP 122/74
--- NOTE | 2025-07-02 16:17 | NUR ---
SHIFT SUMMARY ADMITTED ON 06/27 FOR SBO, POD 6 EXP LAP w/DIAMOND. NO ACUTE CHANGES. A&O x4, COMMUNICATED NEEDS EFFECTIVELY. VSS. REPORTS ABD TENDERNESS UPON PALPATION, MINIMAL PAIN TODAY - MEDICATED PER EMAR. TOLERATING REGULAR DIET WELL, DENIES N/V, VOIDING. GINETTE DRESSING IN PLACE, SMALL AMOUNT OF DARK RED DRAINAGE. NO SX. OF INFECTION. MOBILITY IN HALLWAY ENCOURAGED, DECLINED MULTIPLE TIMES THROUGHOUT DAY. PT VERBALIZED WILL CALL FOR ASSISTANCE TO GET UP. CALL LIGHT WITHIN REACH.
[2025-07-02 20:11] VITALS: BP 136/68
[2025-07-03 02:42] VITALS: BP 130/67
--- NOTE | 2025-07-03 06:38 | NUR ---
SHIFT SUMMARY NO ACUTE CHANGES T/O NIGHT. ABX INFUSED PER ORDERS. DECREASED PO FOR DINNER AND DURING SHIFT. PT STRONGLY ENCOURAGED BY RN TO AMBULATE AND BE UP CHAIR TOLERATED. RISK AND BENEFIT EDUCATION PROVIDED. PT DECLINED, ONLY WILLING TO WALK TO BATHROOM IND. IS VOIDING AND HAVING SEVERAL LIQUID BM'S. DECLINES TO MEASURE OUTPUT. PAIN MANAGED PER EMAR. GINETTE TO MIDLINE COMPRESSED AND INTACT, NO NEW SHADOWING NOTED. PT CURRENTLY RESTING IN BED, RESP EVEN/UNLABORED AND HAS CALL LIGHT IN REACH. WILL GIVE REPORT TO ONCOMING RN.
[2025-07-03 06:47] LABS: BASOPHILS ABSOLUTE AUTO 0.05 K/mm3 (0.00-0.23); BASOPHILS PERCENT AUTO 1 % (0-2); EOSINOPHILS ABSOLUTE AUTO 0.22 K/mm3 (0.00-0.68); EOSINOPHILS PERCENT AUTO 3 % (0-6); Hematocrit 27.4 % (37.0-53.0); Hemoglobin 9.5 g/dL (13.5-17.5); Mean Corpuscular HGB Conc 34.7 g/dL (31.5-36.5); Mean Corpuscular Volume 92 fL (80-100); NRBC ABSOLUTE 0.00 K/mm3 (0.00-0.02); NRBC Auto 0.0 /100 WBC (0.0-0.2); Platelet Count 248 K/mm3 (150-400); RDW Coefficient Variation 13.1 % (11.7-14.2); RDW Standard Deviation 43.7 fL (35.1-46.3)
[2025-07-03 06:49] LABS: IMMATURE GRAN ABSOLUTE AUTO 0.11 K/mm3 (0.00-0.10); IMMATURE GRAN PERCENT AUTO 1 % (0-1); LYMPHOCYTES ABSOLUTE AUTO 2.43 K/mm3 (0.84-5.20); LYMPHOCYTES PERCENT AUTO 29 % (21-46); MONOCYTES ABSOLUTE AUTO 0.56 K/mm3 (0.16-1.47); MONOCYTES PERCENT AUTO 7 % (4-13); NEUTROPHILS ABSOLUTE AUTO 4.99 K/mm3 (1.96-9.15); NEUTROPHILS PERCENT AUTO 60 % (41-73)
[2025-07-03 07:13] LABS: Anion Gap 11.0 mmol/L (3-11); Blood Urea Nitrogen 4.0 mg/dL (8-24); CO2, Blood 22.0 mmol/L (21-32); Calcium, Blood 7.4 mg/dL (8.5-10.1); Chloride, Blood 106.0 mmol/L (98-108); Creatinine, Blood 0.68 mg/dL (0.60-1.20); Glucose, Blood 73.0 mg/dL (70-99); Potassium, Blood 3.6 mmol/L (3.5-5.5); Sodium, Blood 135.0 mmol/L (136-145)
[2025-07-03 07:31] VITALS: BP 131/67
[2025-07-03 14:40] VITALS: BP 127/61
--- NOTE | 2025-07-03 16:21 | NUR ---
SHIFT SUMMARY ADMITTED ON 06/27 FOR SBO, POD 7 EXP LAP w/DIAMOND. NO ACUTE CHANGES THIS SHIFT. A&O x4, COMMUNICATES NEEDS EFFECTIVELY, CALLS APPROPRIATELY. ABDOMINAL TENDERNESS ON PALPATION, MINIMAL PAIN TODAY - MEDICATED PER EMAR. LIQUIDY BM'S. TOLERATING REGULAR DIET WELL, NO N/V, VOIDING. GINETTE DRESSING IN PLACE, SMALL AMOUNT OF OLD DARK RED DRAINAGE, NO SX. INFECTION. ENCOURAGED MOBILITY, DECLINED, BUT AMBULATES TO BATHROOM INDEPENDENTLY. VERBALIZED WILL CALL FOR ASSISTANCE. CALL LIGHT WITHIN REACH.
[2025-07-03 19:10] VITALS: BP 124/79
[2025-07-04 00:31] VITALS: BP 127/65
[2025-07-04] MEDS ORDERED: NS 250 ML IV PRN (02:20)
[2025-07-04 04:26] VITALS: BP 119/67
[2025-07-04 06:12] LABS: BASOPHILS ABSOLUTE AUTO 0.06 K/mm3 (0.00-0.23); BASOPHILS PERCENT AUTO 1 % (0-2); EOSINOPHILS ABSOLUTE AUTO 0.29 K/mm3 (0.00-0.68); EOSINOPHILS PERCENT AUTO 4 % (0-6); Hematocrit 27.0 % (37.0-53.0); Hemoglobin 9.3 g/dL (13.5-17.5); IMMATURE GRAN ABSOLUTE AUTO 0.07 K/mm3 (0.00-0.10); IMMATURE GRAN PERCENT AUTO 1 % (0-1); LYMPHOCYTES ABSOLUTE AUTO 2.44 K/mm3 (0.84-5.20); LYMPHOCYTES PERCENT AUTO 32 % (21-46); MONOCYTES ABSOLUTE AUTO 0.72 K/mm3 (0.16-1.47); MONOCYTES PERCENT AUTO 10 % (4-13); Mean Corpuscular HGB Conc 34.4 g/dL (31.5-36.5); Mean Corpuscular Volume 93 fL (80-100); NEUTROPHILS ABSOLUTE AUTO 3.97 K/mm3 (1.96-9.15); NEUTROPHILS PERCENT AUTO 53 % (41-73); NRBC ABSOLUTE 0.00 K/mm3 (0.00-0.02); NRBC Auto 0.0 /100 WBC (0.0-0.2); Platelet Count 255 K/mm3 (150-400); RDW Coefficient Variation 13.0 % (11.7-14.2); RDW Standard Deviation 44.2 fL (35.1-46.3)
--- NOTE | 2025-07-04 06:23 | NUR ---
SHIFT SUMMARY PT IS ALERT AND ORIENTED TIMES 4. PT ADMITTED FOR SMALL BOWEL OBSTRUCTION. PT APPEARED IN GOOD SPIRITS, SMILING AND ENGAGING IN CONVERSATION. PT IS INDEPENDENT AND ABLE TO AMBULATE TO AND FROM THE TOILET. PT IS CALL LIGHT APPROPRIATE AND ABLE TO MAKE NEEDS KNOWN TO STAFF. PT IS POLITE TO STAFF AND RECEPTIVE TO CARE. BED IS AT LOW POSITION, RAILS ARE TIME 3, AND CALL LIGHT IS WITHIN REACH.
[2025-07-04 06:24] LABS: Anion Gap 9.0 mmol/L (3-11); Blood Urea Nitrogen 3.0 mg/dL (8-24); CO2, Blood 24.0 mmol/L (21-32); Calcium, Blood 7.4 mg/dL (8.5-10.1); Chloride, Blood 104.0 mmol/L (98-108); Creatinine, Blood 0.68 mg/dL (0.60-1.20); Glucose, Blood 83.0 mg/dL (70-99); Potassium, Blood 3.3 mmol/L (3.5-5.5); Sodium, Blood 134.0 mmol/L (136-145)
[2025-07-04 07:15] VITALS: BP 127/63
--- NOTE | 2025-07-04 12:14 | NUR ---
Pt. is awake in bed when he welcomes my visit. Pt. is pleasant. Facilitae an update and Pt. verbalizes that he is uncertain about what is next in his plan of care. Consider matters of his quaker trista and his family heritage. Pt. displays evidence of being aware and engaged. Prayed with Pt. Pt. verbalized gratitude for the spiritual care visit.
[2025-07-04] MEDS ORDERED: TRAM50 PO (13:19)
--- NOTE | 2025-07-04 16:50 | NUR ---
DISCHARGE NOTE PT DISCHARGED HOME AT 1650 PICKED UP BY [facility]. PT A/HAKEEM AND VSS. PT RECEIVED VERBAL AND WRITTEN DISCHARGE INSTRUCTIONS. PT VERBALIZED AN UNDERSTANDING OF DISCHARGE INSTRUCTIONS. HARD SCRIPT GIVEN TO PT. ALL PERSONAL BELONGINGS TAKEN WITH PT.
== END 2025-07-04 17:13 | disposition home or self-care (01) | DRG 335 ==
LOC: ER 18:25 → ICUE 20:46 → SURS 20:46 → ICUE 23:10 → SURS 06-27 13:03 → MEDS 07-04 00:30
PROVIDERS: Emergency Medicine; Family Medicine; Internal Medicine; Nurse Practitioner Acute Care; Surgery; ADMIT Internal Medicine
PROC: 0DNU0ZZ Release Omentum, Open Approach (ICD-10-PCS; 2025-06-26)
PROC: 0D9670Z Drainage of Stomach with Drainage Device, Via Natural or Artificial Opening (ICD-10-PCS; principal; 2025-06-26 15:00)
DX: K56.609 Unspecified intestinal obstruction, unspecified as to partial versus complete obstruction (principal); A41.9 Sepsis, unspecified organism; K55.059 Acute (reversible) ischemia of intestine, part and extent unspecified; E87.1 Hypo-osmolality and hyponatremia; E87.20 Acidosis, unspecified; N17.9 Acute kidney failure, unspecified; I10 Essential (primary) hypertension; F17.210 Nicotine dependence, cigarettes, uncomplicated; E83.42 Hypomagnesemia; E83.39 Other disorders of phosphorus metabolism; D64.9 Anemia, unspecified; R54 Age-related physical debility; Z90.49 Acquired absence of other specified parts of digestive tract; Z79.891 Long term (current) use of opiate analgesic; Z79.899 Other long term (current) drug therapy
CPT/HCPCS: 36415; 70450; 71045; 74177; 80047; 80048; 80053; 80320; 83605; 83735; 84100; 85014; 85025; 87040; 87637; 93005; 93010; 96365-59; 96375; 97110; 97162; 97530; 99285-25; A9270; J1100; J1650; J2371; J2405; J2470; J2543; J2704; J3010; J3475; J7030; J7040; J7050; J7120; Q9967

== ENCOUNTER 2025-08-29 11:39 | Emergency (ER) | payer OTHER ==
[~2025-08-29] VITALS: Ht 172.7 cm; Wt 71.2 kg
[~2025-08-29 11:39] MED LIST changes: +TRAM50 PO
[2025-08-29 12:26] LABS: BASOPHILS ABSOLUTE AUTO 0.12 K/mm3 (0.00-0.23); BASOPHILS PERCENT AUTO 1 % (0-2); EOSINOPHILS ABSOLUTE AUTO 0.15 K/mm3 (0.00-0.68); EOSINOPHILS PERCENT AUTO 1 % (0-6); Hematocrit 43.1 % (37.0-53.0); Hemoglobin 14.7 g/dL (13.5-17.5); IMMATURE GRAN ABSOLUTE AUTO 0.04 K/mm3 (0.00-0.10); IMMATURE GRAN PERCENT AUTO 0 % (0-1); LYMPHOCYTES ABSOLUTE AUTO 3.90 K/mm3 (0.84-5.20); LYMPHOCYTES PERCENT AUTO 33 % (21-46); MONOCYTES ABSOLUTE AUTO 0.76 K/mm3 (0.16-1.47); MONOCYTES PERCENT AUTO 7 % (4-13); Mean Corpuscular HGB Conc 34.1 g/dL (31.5-36.5); Mean Corpuscular Volume 95 fL (80-100); NEUTROPHILS ABSOLUTE AUTO 6.76 K/mm3 (1.96-9.15); NEUTROPHILS PERCENT AUTO 58 % (41-73); NRBC ABSOLUTE 0.00 K/mm3 (0.00-0.02); NRBC Auto 0.0 /100 WBC (0.0-0.2); Platelet Count 327 K/mm3 (150-400); RDW Coefficient Variation 14.9 % (11.7-14.2); RDW Standard Deviation 52.3 fL (35.1-46.3)
[2025-08-29 12:45] LABS: Alanine Aminotransfer (ALT/SGP 23.0 U/L (12-78); Albumin, Blood 3.6 g/dL (3.4-5.0); Albumin/Globulin Ratio 0.8 (0.8-1.8); Anion Gap 10.0 mmol/L (3-11); Aspartate Aminotrans (AST/SGOT 27.0 U/L (12-37); Bilirubin, Total 0.8 mg/dL (0.1-1.0); Blood Urea Nitrogen 7.0 mg/dL (8-24); CO2, Blood 24.0 mmol/L (21-32); Calcium, Blood 9.4 mg/dL (8.5-10.1); Chloride, Blood 101.0 mmol/L (98-108); Creatinine, Blood 0.63 mg/dL (0.60-1.20); Globulin, Blood 4.4 g/dL (2.2-4.0); Glucose, Blood 89.0 mg/dL (70-99); Potassium, Blood 4.6 mmol/L (3.5-5.5); Sodium, Blood 130.0 mmol/L (136-145); Total Protein, Blood 8.0 g/dL (6.4-8.2)
[2025-08-29 14:06] VITALS: BP 120/84
[2025-08-29] MEDS ORDERED: Ketorolac Tromethamine 15mg Vial IV ONE (14:10)
== END 2025-08-29 14:21 | disposition home or self-care (01) ==
LOC: ER 11:39
PROVIDERS: Physician Assistant
DX: G89.18 Other acute postprocedural pain (principal); R10.10 Upper abdominal pain, unspecified; Z59.89 Other problems related to housing and economic circumstances; I10 Essential (primary) hypertension; F17.200 Nicotine dependence, unspecified, uncomplicated
CPT/HCPCS: 74177; 80053; 85025; 96374-59; 99284-25; J1885; Q9967